=== PATIENT | female | born 1970 | race Caucasian/White ===

== ENCOUNTER 2017-12-07 12:07 | Inpatient (IN) | payer BC, OTHER ==
[2017-12-07 12:10] VITALS: BMI 30.4
--- NOTE | 2017-12-07 13:41 | HP ---
CIWA Score - CIWA Score Nausea/Vomitin Muscle Tremors: 2 Anxiety: 2 Agitation: 2 Paroxysmal Sweats: 1-Minimal Palms Moist Orientation: 0-Oriented Tacttile Disturbances: 1-Very Mild Itch/Numbness Auditory Disturbances: 1-Very Mild Visual Disturbances: 1-Very Mild Sensitivity Headache: 2-Mild CIWA-Ar Total Score: 14 Admission ROS BHS - HPI Chief Complaint: i need help to stop drinking alcohol, Allergies/Adverse Reactions: Allergies Allergy/AdvReac Type Severity Reaction Status Date / Time No Known Allergies Allergy Verified 12/07/17 12:41 History of Present Illness: this 47 years old female with alcohol dependence,seeking detox,withdrawal symptom, last detox in 2016 in [facility] had admissions in the past but keep relapsing htn,prediabetes, seizure alcohol related nicotine dependence anxiety and depression longest period of sobriety 5 years - Ebola screening Have you traveled outside of the country in the last 21 days: No (N) Have you had contact with anyone from an Ebola affected area: No Have you been sick,other than usual withdrawal symptoms: No Do you have a fever: No - Review of Systems Constitutional: Loss of Appetite, Malaise, Night Sweats, Changes in sleep, Weakness EENT: reports: Tearing, Nose Congestion Respiratory: reports: No Symptoms reported, Other (copd) Cardiac: reports: Syncope GI: reports: Nausea, Poor Appetite, Abdominal cramping : reports: No Symptoms Reported Musculoskeletal: reports: Back Pain, Muscle Pain Neuro: reports: Seizure, Tremors Endocrine: reports: No Symptoms Reported Hematology: reports: No Symptoms Reported Psychiatric: reports: No Sypmtoms Reported, Judgement Intact, Mood/Affect Appropiate, Orientated x3, Anxious, Depressed (insomnia) Patient History - Patient Medical History Hx Anemia: No Hx Asthma: No Hx Chronic Obstructive Pulmonary Disease (COPD): Yes (copd) Hx Cancer: No Hx Cardiac Disorders: No Hx Congestive Heart Failure: No Hx Hypertension: No Hx Hypercholesterolemia: No Hx Pacemaker: No HX Cerebrovascular Accident: No Hx Seizures: Yes (DRUG RELATED SEIZURE 2015) Hx Dementia: No Hx Diabetes: No Hx Gastrointestinal Disorders: No Hx Liver Disease: No Hx Genitourinary Disorders: No Hx Sexually Transmitted Disorders: No Hx Renal Disease (ESRD): No Hx Thyroid Disease: No Hx Human Immunodeficiency Virus (HIV): No (last 2013 negative) Hx Hepatitis C: No Hx Depression: Yes Hx Suicide Attempt: No Hx Bipolar Disorder: No Hx Schizophrenia: No Other Medical History: no suicidal,no homicidal,plantar fasciitis,cane ambulation - Patient Surgical History Past Surgical History: Yes Hx Neurologic Surgery: No Hx Cataract Extraction: No Hx Cardiac Surgery: No Hx Lung Surgery: No Hx Breast Surgery: No Hx Breast Biopsy: No Hx Abdominal Surgery: No Hx Appendectomy: Yes (1979) Hx Cholecystectomy: No Hx Genitourinary Surgery: No Hx Section: No Hx Orthopedic Surgery: No Anesthesia Reaction: No - PPD History Previous Implant?: Yes Documented Results: Negative w/o proof Implanted On Prior [facility] Admission?: No PPD to be Administered?: Yes - Reproductive History Patient is a Female of Child Bearing Age (11 -55 yrs old): Yes Last Menstrual Period: 09/04/11 Patient : No - Smoking Cessation Smoking history: Current every day smoker Have you smoked in the past 12 months: Yes Aproximately how many cigarettes per day: 20 Hx Chewing Tobacco Use: No Initiated information on smoking cessation: No 'Breaking Loose' booklet given: 12/14/17 - Substance & Tx. History Hx Alcohol Use: Yes Hx Substance Use: No Substance Use Type: Alcohol Hx Substance Use Treatment: Yes (2015 [facility]) - Substances Abused Alcohol Route: Oral Frequency: Daily Amount used: 1 pint of Vodka Age of first use: 22 Date of Last Use: 12/06/17 Family Disease History - Family Disease History Family History: Denies Admission Physical Exam BHS - Vital Signs Vital Signs: Vital Signs - 24 hr 12/07/17 12:07 Temperature 98.2 F Pulse Rate 69 Respiratory 18 Rate Blood Pressure 150/97 - Physical General Appearance: Yes: Moderate Distress, Tremorous, Irritable, Sweating, Anxious HEENTM: Yes: Normal ENT Inspection, MAXI, Pharynx Normal Respiratory: Yes: Lungs Clear, Normal Breath Sounds, No Respiratory Distress Neck: Yes: Within Normal Limits, Supple, Trachea in good position Breast: Yes: Breast Exam Deferred Cardiology: Yes: Within Normal Limits, Regular Rhythm, Regular Rate, S1, S2 Abdominal: Yes: Within Normal Limits, Normal Bowel Sounds, Non Tender, Soft Genitourinary: Yes: Within Normal Limits Back: Yes: Normal Inspection, Muscle Spasm Musculoskeletal: Yes: full range of Motion, Back pain, Muscle Pain Extremities: Yes: Within Normal Limits, Normal Range of Motion, Tremors Neurological: Yes: pension examiner II-XII NML intact, Fully Oriented, Alert, Motor Strength 5/5 Integumentary: Yes: Dry Lymphatic: Yes: Within Normal Limits - Diagnostic (1) Alcohol dependence with withdrawal Current Visit: Yes Status: Acute (2) Alcohol related seizure Current Visit: Yes Status: Acute (3) Syncope Current Visit: Yes Status: Acute (4) COPD (chronic obstructive pulmonary disease) Current Visit: Yes Status: Acute (5) Anxiety and depression Current Visit: Yes Status: Acute (6) Encounter for monitoring Suboxone maintenance therapy Current Visit: Yes Status: Acute (7) Nicotine dependence Current Visit: Yes Status: Acute (8) Essential hypertension Current Visit: Yes Status: Acute (9) Borderline diabetes mellitus Current Visit: Yes Status: Acute (10) Plantar fasciitis Current Visit: Yes Status: Acute (11) Use of cane as ambulatory aid Current Visit: Yes Status: Acute (12) Neuropathy Current Visit: Yes Status: Acute Cleared for Admission [facility] - Detox or Rehab [facility] Level of Care: Medically Managed Detox Regimen/Protocol: Librium [facility] Breath Alcohol Content Breath Alcohol Content: 0 Urine Pregancy Test - Result Urine Test Results: Negative- NO Line Present Urine Drug Screen - Results Drug Screen Negative: No Urine Drug Screen Results: BZO-Benzodiazepines, MTD-Methadone, BUP-Suboxone
[2017-12-07] MEDS ORDERED: NICOTINE POLACRILEX 2 MG GUM BUC PRN (14:17)
[2017-12-07] MEDS ORDERED: guaiFENesin/D-METHORPHAN HB 10 ML UNIT-DOSE CUPS PO PRN (14:17)
[2017-12-07] MEDS ORDERED: MAGNESIUM CITRATE 300 ML BOTTLE PO PRN (14:17)
[2017-12-07] MEDS ORDERED: MAG HYDROX/AL HYDROX/SIMETH 30 ML UNIT-DOSE CUP PO PRN (14:17)
[2017-12-07] MEDS ORDERED: LOPERAMIDE HCL 2 MG CAPSULE PO PRN (14:17)
[2017-12-07] MEDS ORDERED: P-EPHED 60MG/TRIPROLIDI 2.5MG TABLET PO PRN (14:17)
[2017-12-07] MEDS ORDERED: hydrOXYzine PAMOATE 25 MG CAPSULE (FP) PO PRN (14:17)
[2017-12-07] MEDS ORDERED: chlordiazePOXIDE HCL 25 MG CAPSULE PO PRN (14:17)
[2017-12-07] MEDS ORDERED: MENTHOL/PHENOL 1 EACH UD MM PRN (14:17)
[2017-12-07] MEDS ORDERED: ACETAMINOPHEN 325 MG TABLET (FP) PO PRN (14:17)
[2017-12-07] MEDS ORDERED: MAGNESIUM HYDROX 2400MG/30ML ORAL SUSPENSION 30 ML CUP PO PRN (14:17)
[2017-12-07] MEDS: NICOTINE 21 MG/24 HOURS TOPICAL PATCH TD SCH (15:43)
[2017-12-07] MEDS ORDERED: BUPRENORPHINE/NALOXONE 8 MG/2 MG FILM PACKET SL ONE (15:47)
[2017-12-07 17:38] LABS: URINE APPEARANCE CLOUDY; URINE BILIRUBIN NEGATIVE (<2.0 mg/dL); URINE GLUCOSE (UA) NEGATIVE (NEGATIVE); URINE KETONE 1+ (NEGATIVE); URINE LEUK ESTERASE 1+ (NEGATIVE); URINE NITRITE NEGATIVE (NEGATIVE); URINE PROTEIN 2+ (NEGATIVE)
[2017-12-07 17:39] LABS: URINE COLOR YELLOW
[2017-12-07 17:42] LABS: EPI CELLS FEW /HPF (FEW); URINE MUCUS MODERATE; YEAST RARE
[2017-12-07] MEDS: chlordiazePOXIDE HCL 25 MG CAPSULE PO SCH ×2 (17:46→22:08)
[2017-12-07] MEDS: THIAMINE HCL 100 MG TABLET (FP) PO SCH (22:05)
[2017-12-07] MEDS: BUDESONIDE/FORMETEROL FUMARATE 160/4.5 mcg INHALER IH SCH (22:06)
[2017-12-07] MEDS: MONTELUKAST NA 10 MG TABLET PO SCH (22:08)
[2017-12-07] MEDS: MELATONIN 5 MG TABLETS PO PRN (22:08)
[2017-12-08] MEDS: chlordiazePOXIDE HCL 25 MG CAPSULE PO SCH ×4 (05:33→22:11)
--- NOTE | 2017-12-08 07:40 | CONSULT ---
[facility] Psychiatric Consult - Data Date of interview: 12/08/17 Admission source: [facility] Identifying data: This is a 47 years old female, single mother of one, living with family, ambulates with Cane, transportation department head working, with psychiatric hospitalization history, with alcohol, nicotine dependence,seeking detox, reporting Alcohol withdrawal symptoms. Last detox in 2016 in [facility]. had admissions in the past but keep relapsing. htn,prediabetes,. seizure alcohol related. nicotine dependence. anxiety and depression. longest period of sobriety 5 years Substance Abuse History: - Smoking Cessation. Smoking history: Current every day smoker. Have you smoked in the past 12 months: Yes. Aproximately how many cigarettes per day: 20. Hx Chewing Tobacco Use: No. Initiated information on smoking cessation: No. 'Breaking Loose' booklet given: 12/14/17. - Substance & Tx. History. Hx Alcohol Use: Yes. Hx Substance Use: No. Substance Use Type : Alcohol. Hx Substance Use Treatment: Yes (2015 [facility]). - Substances Abused. Alcohol. Route: Oral. Frequency: Daily. Amount used: 1 pint of Vodka. Age of first use: 22. Date of Last Use: 12/06/17 Medical History: HTN, DM-?,COPD, Syncope history, Psychiatric History: Patient reports history of depression and anxiety, reports last psychiatric admission on 2015 at [facility], reports currently taking: Wellbutrin XL 300mg poqd. Zoloft 200mg poqd. Denies suicidal, homicidal history. Physical/Sexual Abuse/Trauma History: Denies Additional Comment: Wellbutrin XL 300mg poqd. Zoloft 200mg poqd Mental Status Exam - Mental Status Exam Alert and Oriented to: Place, Person Cognitive Function: Fair Patient Appearance: Unkempt Mood: Apprehensive Affect: Mood Congruent Patient Behavior: Cooperative Speech Pattern: Delayed Voice Loudness: Normal Thought Process: Circumstantial, Goal Oriented Thought Disorder: Being Controlled Hallucinations: Denies Suicidal Ideation: Denies Homicidal Ideation: Denies Insight/Judgement: Fair Appetite: Weight gain Muscle strength/Tone: Mild Hypotonicity Gait/Station: Shuffling Additional Comments: Wellbutrin XL 300mg poqd. Zoloft 200mg poqd Psychiatric Findings - Problem List ([place] 1, 2,3) (1) Borderline diabetes mellitus Current Visit: Yes Status: Acute (2) COPD (chronic obstructive pulmonary disease) Current Visit: Yes Status: Acute (3) Alcohol dependence with withdrawal Current Visit: Yes Status: Chronic Qualifiers: Complication of substance-induced condition: uncomplicated Qualified Code(s ): F10.230 - Alcohol dependence with withdrawal, uncomplicated (4) Essential hypertension Current Visit: Yes Status: Chronic (5) Neuropathy Current Visit: Yes Status: Chronic (6) Nicotine dependence Current Visit: Yes Status: Chronic Qualifiers: Nicotine product type: cigarettes Substance use status: uncomplicated Qualified Code(s): F17.210 - Nicotine dependence, cigarettes, uncomplicated - Initial Treatment Plan Initial Treatment Plan: Wellbutrin XL 300mg poqd. Zoloft 200mg poqd
[2017-12-08] MEDS ORDERED: BUPRENORPHINE/NALOXONE 8 MG/2 MG FILM PACKET SL SCH (10:00)
--- NOTE | 2017-12-08 10:07 | PN ---
S CIWA - CIWA Score Nausea/Vomitin-No Nausea/No Vomiting Muscle Tremors: 4-Moderate,w/Arms Extend Anxiety: 3 Agitation: 4-Moderately Restless Paroxysmal Sweats: 3 Orientation: 0-Oriented Tacttile Disturbances: 0-None Auditory Disturbances: 0-None Visual Disturbances: 0-None Headache: 0-None Present CIWA-Ar Total Score: 14 BHS Progress Note (SOAP) Subjective: agitation anxiety I need my suboxone twice a day not once a day sweats nerve pain I need my gabapentin Objective: 12/08/17 10:05 Vital Signs Temperature 98.8 F 12/08/17 09:15 Pulse Rate 81 12/08/17 09:15 Respiratory Rate 18 12/08/17 09:15 Blood Pressure 137/85 12/08/17 09:15 O2 Sat by Pulse Oximetry (%) Laboratory Tests 12/07/17 15:04 Urine Color Yellow Urine Appearance Cloudy Urine pH 6.0 Ur Specific [place] 1.026 Urine Protein 2+ H Urine Glucose (UA) Negative Urine Ketones 1+ H Urine Blood 3+ H Urine Nitrite Negative Urine Bilirubin Negative Urine Urobilinogen 2.0 H Ur Leukocyte Esterase 1+ H Urine WBC (Auto) 14 Urine RBC (Auto) 196 Ur Epithelial Cells Few Urine Mucus Moderate Urine Yeast Rare rest of labs pending repeat u/a. pt has her menstruation aaox3 ambulating no acute distress Assessment: 12/08/17 10:06 withdrawal sx Plan: continue detox increase fluids suboxone increased to bid; reviewed istop and pt is taking her suboxone bid as prescribed by her MD gabapentin ordered as prescribed
[2017-12-08] MEDS ORDERED: ONDANSETRON *ODT* 4 MG TABLET SL PRN (10:08)
[2017-12-08 10:14] LABS: MCH 25.9 pg (25.7-33.7); MCHC 31.7 g/dl (32.0-36.0); MEAN CELL VOLUME 81.8 fl (80-96); MEAN PLT VOLUME 8.1 fl (7.5-11.1); PLATELET COUNT 152 K/MM3 (134-434); RBC 5.01 M/mm3 (3.60-5.2); RDW 16.8 % (11.6-15.6); WHITE BLOOD COUNT 4.9 K/mm3 (4.0-10.0)
[2017-12-08] MEDS: SERTRALINE HCL 50 MG TABLET (FP) PO SCH (10:42)
[2017-12-08] MEDS: PRENATAL VITAMINS W/ FOLIC ACID TABLET (FP) PO SCH (10:42)
[2017-12-08] MEDS: BUPRENORPHINE/NALOXONE 8 MG/2 MG FILM PACKET SL SCH ×2 (10:42→22:11)
--- NOTE | 2017-12-08 10:42 | EKG ---
Test Reason : Blood Pressure : / mmHG Vent. Rate : 067 BPM Atrial Rate : 067 BPM P-R Int : 154 ms QRS Dur : 076 ms QT Int : 430 ms P-R-T Axes : 070 051 075 degrees QTc Int : 454 ms NORMAL SINUS RHYTHM NORMAL ECG NO PREVIOUS ECGS AVAILABLE Confirmed by MERARY CHAN MD ([id number]) on 12/08/2017 10:42:05 AM Referred By: Confirmed By:MERARY CHAN MD
[2017-12-08] MEDS: BUDESONIDE/FORMETEROL FUMARATE 160/4.5 mcg INHALER IH SCH ×2 (10:43→22:10)
[2017-12-08 10:51] LABS: ALBUMIN 3.6 g/dl (3.4-5.0); ALK PHOS 161 U/L (45-117); ANION GAP 9 MMOL/L (8-16); BILIRUBIN,TOTAL 0.6 mg/dL (0.2-1); BLOOD UREA NITROGEN 9 mg/dL (7-18); CALCIUM 9.6 mg/dL (8.5-10.1); CHLORIDE 100 mmol/L (98-107); CO2 30 mmol/L (21-32); CREATININE 0.7 mg/dL (0.55-1.3); GLUCOSE,RANDOM 110 mg/dL (74-106); POTASSIUM 3.2 mmol/L (3.5-5.1); SGOT/AST 32 U/L (15-37); SGPT/ALT 24 U/L (13-61); SODIUM 139 mmol/L (136-145); TOT PROT 7.4 g/dl (6.4-8.2)
[2017-12-08] MEDS: NICOTINE 21 MG/24 HOURS TOPICAL PATCH TD SCH (13:58)
[2017-12-08] MEDS: GABAPENTIN 300 MG CAPSULE (FP) PO SCH ×2 (13:58→22:11)
[2017-12-08] MEDS: MONTELUKAST NA 10 MG TABLET PO SCH (22:11)
[2017-12-08] MEDS: PRAZOSIN HCL 5 MG CAPSULE PO SCH (22:11)
[2017-12-08] MEDS: THIAMINE HCL 100 MG TABLET (FP) PO SCH (22:11)
[2017-12-08] MEDS: MELATONIN 5 MG TABLETS PO PRN (22:15)
[2017-12-09] MEDS: GABAPENTIN 300 MG CAPSULE (FP) PO SCH ×3 (05:30→22:17)
[2017-12-09] MEDS: chlordiazePOXIDE HCL 25 MG CAPSULE PO SCH ×2 (05:31→10:23)
[2017-12-09] MEDS: PRENATAL VITAMINS W/ FOLIC ACID TABLET (FP) PO SCH (10:22)
[2017-12-09] MEDS: SERTRALINE HCL 50 MG TABLET (FP) PO SCH (10:22)
[2017-12-09] MEDS: POTASSIUM CHLORIDE TABS 20 MEQ TABLET.ER (FP) PO SCH (10:22)
[2017-12-09] MEDS: BUPRENORPHINE/NALOXONE 8 MG/2 MG FILM PACKET SL SCH ×2 (10:22→22:16)
[2017-12-09] MEDS: BUDESONIDE/FORMETEROL FUMARATE 160/4.5 mcg INHALER IH SCH ×2 (10:25→22:15)
[2017-12-09] MEDS: NICOTINE 21 MG/24 HOURS TOPICAL PATCH TD SCH (10:27)
--- NOTE | 2017-12-09 11:31 | PN ---
[facility] CIWA - CIWA Score Nausea/Vomitin-No Nausea/No Vomiting Muscle Tremors: 3 Anxiety: 3 Agitation: 3 Paroxysmal Sweats: 3 Orientation: 0-Oriented Tacttile Disturbances: 0-None Auditory Disturbances: 0-None Visual Disturbances: 0-None Headache: 0-None Present CIWA-Ar Total Score: 12 S Progress Note (SOAP) Subjective: sweats low back pain interrupted sleep Objective: 12/09/17 11:30 Vital Signs Temperature 97.9 F 12/09/17 09:46 Pulse Rate 86 12/09/17 09:46 Respiratory Rate 18 12/09/17 09:46 Blood Pressure 137/93 12/09/17 09:46 O2 Sat by Pulse Oximetry (%) Laboratory Tests 12/07/17 12/08/17 12/08/17 15:04 07:00 07:00 WBC 4.9 RBC 5.01 Hgb 13.0 Hct 41.0 MCV 81.8 MCH 25.9 MCHC 31.7 L RDW 16.8 H Plt Count 152 MPV 8.1 Sodium 139 Potassium 3.2 L Chloride 100 Carbon Dioxide 30 Anion Gap 9 BUN 9 Creatinine 0.7 Creat Clearance w eGFR > 60 Random Glucose 110 H Calcium 9.6 Total Bilirubin 0.6 AST 32 ALT 24 Alkaline Phosphatase 161 H Total Protein 7.4 Albumin 3.6 Urine Color Yellow Urine Appearance Cloudy Urine pH 6.0 Ur Specific [place] 1.026 Urine Protein 2+ H Urine Glucose (UA) Negative Urine Ketones 1+ H Urine Blood 3+ H Urine Nitrite Negative Urine Bilirubin Negative Urine Urobilinogen 2.0 H Ur Leukocyte Esterase 1+ H Urine WBC (Auto) 14 Urine RBC (Auto) 196 Ur Epithelial Cells Few Urine Mucus Moderate Urine Yeast Rare RPR Titer 12/08/17 07:00 WBC RBC Hgb Hct MCV MCH MCHC RDW Plt Count MPV Sodium Potassium Chloride Carbon Dioxide Anion Gap BUN Creatinine Creat Clearance w eGFR Random Glucose Calcium Total Bilirubin AST ALT Alkaline Phosphatase Total Protein Albumin Urine Color Urine Appearance Urine pH Ur Specific [place] Urine Protein Urine Glucose (UA) Urine Ketones Urine Blood Urine Nitrite Urine Bilirubin Urine Urobilinogen Ur Leukocyte Esterase Urine WBC (Auto) Urine RBC (Auto) Ur Epithelial Cells Urine Mucus Urine Yeast RPR Titer Nonreactive aaox3 ambulating no acute distress Assessment: 12/09/17 11:31 withdrawal sx Plan: continue detox increase fluids motrin 800mg prn
[2017-12-09] MEDS: chlordiazePOXIDE 5 MG CAPSULE PO SCH ×2 (18:10→22:17)
[2017-12-09] MEDS: MONTELUKAST NA 10 MG TABLET PO SCH (22:16)
[2017-12-09] MEDS: PRAZOSIN HCL 5 MG CAPSULE PO SCH (22:17)
[2017-12-09] MEDS: THIAMINE HCL 100 MG TABLET (FP) PO SCH (22:17)
[2017-12-09] MEDS: MELATONIN 5 MG TABLETS PO PRN (23:19)
[2017-12-10] MEDS: GABAPENTIN 300 MG CAPSULE (FP) PO SCH ×3 (06:16→23:27)
[2017-12-10] MEDS: chlordiazePOXIDE 5 MG CAPSULE PO SCH ×2 (06:17→11:11)
[2017-12-10] MEDS: ALBUTEROL SO4 8 GM HFA INHALER IH PRN ×2 (08:51→16:41)
[2017-12-10] MEDS: PRENATAL VITAMINS W/ FOLIC ACID TABLET (FP) PO SCH (10:20)
[2017-12-10] MEDS: POTASSIUM CHLORIDE TABS 20 MEQ TABLET.ER (FP) PO SCH (10:20)
[2017-12-10] MEDS: SERTRALINE HCL 50 MG TABLET (FP) PO SCH (10:20)
[2017-12-10] MEDS: BUPRENORPHINE/NALOXONE 8 MG/2 MG FILM PACKET SL SCH ×2 (10:20→23:29)
[2017-12-10] MEDS: NICOTINE 21 MG/24 HOURS TOPICAL PATCH TD SCH (10:21)
[2017-12-10] MEDS: BUDESONIDE/FORMETEROL FUMARATE 160/4.5 mcg INHALER IH SCH ×2 (10:21→23:29)
--- NOTE | 2017-12-10 10:52 | PN ---
BHS Progress Note (SOAP) Subjective: anxiety sweats Objective: 12/10/17 10:51 Vital Signs Temperature 99.3 F 12/10/17 10:12 Pulse Rate 113 H 12/10/17 10:12 Respiratory Rate 16 12/10/17 10:12 Blood Pressure 145/91 12/10/17 10:12 O2 Sat by Pulse Oximetry (%) aaox3 ambulating no acute distress Assessment: 12/10/17 10:52 withdrawal sx Plan: continue detox increase fluids d/c in am
[2017-12-10] MEDS: IBUPROFEN 400 MG TABLET (FP) PO PRN ×2 (16:38→23:33)
[2017-12-10] MEDS: chlordiazePOXIDE HCL 10 MG CAPSULE PO SCH ×2 (16:38→23:27)
[2017-12-10] MEDS: THIAMINE HCL 100 MG TABLET (FP) PO SCH (23:27)
[2017-12-10] MEDS: MONTELUKAST NA 10 MG TABLET PO SCH (23:28)
[2017-12-10] MEDS: PRAZOSIN HCL 5 MG CAPSULE PO SCH (23:29)
[2017-12-10] MEDS: MELATONIN 5 MG TABLETS PO PRN (23:34)
[2017-12-11] MEDS: GABAPENTIN 300 MG CAPSULE (FP) PO SCH (05:51)
[2017-12-11] MEDS: chlordiazePOXIDE HCL 10 MG CAPSULE PO SCH ×2 (05:52→12:06)
[2017-12-11] MEDS: IBUPROFEN 400 MG TABLET (FP) PO PRN (05:54)
--- NOTE | 2017-12-11 09:07 | DS ---
[facility] Detox Discharge Summary Admission Date: 12/07/17 Discharge Date: 12/11/17 - History Present History: Alcohol Dependence - Physical Exam Results Vital Signs: Vital Signs Temperature 97.9 F 12/11/17 08:18 Pulse Rate 85 12/11/17 08:18 Respiratory Rate 18 12/11/17 08:18 Blood Pressure 135/81 12/11/17 08:18 O2 Sat by Pulse Oximetry (%) - Treatment Hospital Course: Detox Protocol Followed, Detoxed Safely, Responded well, Discharged Condition Good, Rehab Referral Accepted - Medication Discharge Medications: Ambulatory Orders Buprenorphine HCl/Naloxone HCl [Suboxone 8 mg-2 mg Sl Tablets] 2 each SL DAILY 12/07/17 Gabapentin 600 mg PO TID 12/07/17 Montelukast Na [Singulair -] 10 mg PO HS 12/07/17 Sertraline HCl [Zoloft -] 200 mg PO DAILY 12/07/17 Bupropion HCl [Wellbutrin Xl -] 300 mg PO DAILY #30 tab.sr.24h 12/08/17 Prazosin HCl 10 mg PO HS #30 capsule 12/08/17 Sertraline HCl [Zoloft -] 200 mg PO DAILY #30 tablet 12/08/17 - Diagnosis (1) Alcohol dependence with withdrawal Current Visit: Yes Status: Chronic Qualifiers: Complication of substance-induced condition: uncomplicated Qualified Code(s ): F10.230 - Alcohol dependence with withdrawal, uncomplicated (2) Alcohol related seizure Current Visit: Yes Status: Acute (3) Anxiety and depression Current Visit: Yes Status: Acute (4) Borderline diabetes mellitus Current Visit: Yes Status: Acute (5) COPD (chronic obstructive pulmonary disease) Current Visit: Yes Status: Acute (6) Encounter for monitoring Suboxone maintenance therapy Current Visit: Yes Status: Chronic (7) Essential hypertension Current Visit: Yes Status: Chronic (8) Neuropathy Current Visit: Yes Status: Chronic (9) Nicotine dependence Current Visit: Yes Status: Chronic Qualifiers: Nicotine product type: cigarettes Substance use status: uncomplicated Qualified Code(s): F17.210 - Nicotine dependence, cigarettes, uncomplicated (10) Plantar fasciitis Current Visit: No Status: Chronic (11) Syncope Current Visit: Yes Status: Acute (12) Use of cane as ambulatory aid Current Visit: Yes Status: Acute - AMA Did Patient Leave Against Medical Advice: No
[2017-12-11] MEDS: PRENATAL VITAMINS W/ FOLIC ACID TABLET (FP) PO SCH (10:04)
[2017-12-11] MEDS: POTASSIUM CHLORIDE TABS 20 MEQ TABLET.ER (FP) PO SCH (10:04)
[2017-12-11] MEDS: BUPRENORPHINE/NALOXONE 8 MG/2 MG FILM PACKET SL SCH (10:04)
[2017-12-11] MEDS: SERTRALINE HCL 50 MG TABLET (FP) PO SCH (10:04)
[2017-12-11] MEDS: NICOTINE 21 MG/24 HOURS TOPICAL PATCH TD SCH (10:05)
[2017-12-11] MEDS: BUDESONIDE/FORMETEROL FUMARATE 160/4.5 mcg INHALER IH SCH (10:05)
[2017-12-11 11:38] VITALS: BP 145/77; PULSE 95; TEMP 97.3
== END 2017-12-11 10:22 | disposition home or self-care (01) | DRG 897 ==
LOC: YASAS 12:07 → Y6N 13:45
PROC: HZ2ZZZZ Detoxification Services for Substance Abuse Treatment (ICD-10-PCS; principal; 2017-12-07)
DX: F10.230 Alcohol dependence with withdrawal, uncomplicated (principal); F11.20 Opioid dependence, uncomplicated; F17.210 Nicotine dependence, cigarettes, uncomplicated; F41.8 Other specified anxiety disorders; I10 Essential (primary) hypertension; R73.03 Prediabetes; J44.9 Chronic obstructive pulmonary disease, unspecified; G62.9 Polyneuropathy, unspecified; M72.2 Plantar fascial fibromatosis; R26.2 Difficulty in walking, not elsewhere classified; Z99.89 Dependence on other enabling machines and devices; Z86.69 Personal history of other diseases of the nervous system and sense organs
CPT/HCPCS: 36415; 80053; 81003; 81015; 85027; 86593; 93005; 93010